=== PATIENT | female | born 1950 | race Two or more races ===

== ENCOUNTER 2023-02-28 02:56 | Outpatient (CLI) | payer MEDICARE | END 2023-02-28 02:57 | disposition critical access hospital (66) | LOC: EMS 02:56 | DX: R10.10 Upper abdominal pain, unspecified (principal); R11.10 Vomiting, unspecified; R19.7 Diarrhea, unspecified; R68.83 Chills (without fever) | CPT/HCPCS: A0425; A0429 ==

== ENCOUNTER 2023-02-28 03:14 | Emergency (ER) | payer MEDICARE, OTHER ==
--- NOTE | 2023-02-28 03:33 | ED Physician Documentation ---
History of Present Illness - Stated complaint Stated Complaint: N/V/D - Chief complaint Chief Complaint: Abd Pain - History obtained from History obtained from: Patient - Additonal information Additional information: 73yF with pmh gerd, htn, thyroid issues, p/w nbnb n/v and nonbloody diarrhea yesterday with burning in midepigastric region, nonradiating. denies fever, urinary sx, back pain. Review of Systems Constitutional: denies: Fever Cardiac: denies: Chest pain / pressure Respiratory: denies: Dyspnea GI: reports: Abdominal Pain, Nausea, Vomiting, Diarrhea. denies: Constipation, Bloody / black stool : denies: Dysuria PD PAST MEDICAL HISTORY - Present Medications Home Medications: Ambulatory Orders Medication Instructions Recorded Confirmed Esomeprazole Magnesium [Nexium] 40 mg PO DAILY 02/28/23 02/28/23 Levothyroxine Sodium [Levo-T] 25 mcg PO DAILY 02/28/23 02/28/23 Lisinopril [Zestril] 2.5 mg PO DAILY 02/28/23 02/28/23 estradioL [Estradiol (Once Weekly)] 02/28/23 - Allergies Allergies/Adverse Reactions: Allergies Allergy/AdvReac Type Severity Reaction Status Date / Time No Known Drug Allergies Allergy Verified 02/28/23 03:30 PD ED PE NORMAL - Vitals Vital signs reviewed: Yes - General General: Alert and oriented X 3, No acute distress, Well developed/nourished - HEENT HEENT: Atraumatic, PERRL, EOMI - Neck Neck: Supple, no meningeal sign - Cardiac Cardiac: RRR - Respiratory Respiratory: No respiratory distress, Clear bilaterally - Abdomen Abdomen: Non tender, Non distended, Other (discomfort to epigastrium on palpation) - Back Back: No CVA TTP - Derm Derm: Normal color, Warm and dry - Extremities Extremities: No deformity - Neuro Neuro: Alert and oriented X 3, No motor deficit, No sensory deficit - Psych Psych: Normal mood, Normal affect Results - Vitals Vitals: Vital Signs - 24 hr 02/28/23 02/28/23 02/28/23 03:18 03:37 03:59 Temperature 36.9 C Heart Rate 74 72 82 Respiratory 14 18 22 Rate Blood Pressure 134/66 H 138/64 H 133/62 H O2 Saturation 98 97 97 02/28/23 05:16 Temperature Heart Rate 64 Respiratory 21 Rate Blood Pressure 115/58 L O2 Saturation 97 Oxygen O2 Source Room air - EKG (time done) 0320 EKG releavant findings:: EKG personally interpreted by author of this note. Relevant findings are: Rate: Rate (enter#) (74) Rhythm: NSR [place]: Normal Intervals: Normal AR QRS: Normal Ischemia: Normal ST segments - Labs Labs: Laboratory Tests 02/28/23 02/28/23 03:34 03:34 WBC 13.3 H RBC 4.48 Hgb 12.3 Hct 37.5 MCV 83.7 MCH 27.5 MCHC 32.8 RDW 13.3 Plt Count 222 MPV 10.3 Neut # (Auto) 11.8 H Lymph # (Auto) 0.7 L [place] # (Auto) 0.7 Eos # (Auto) 0.1 Baso # (Auto) 0.0 Absolute Nucleated RBC 0.00 Nucleated RBC % 0.0 Sodium 136 Potassium 4.0 Chloride 104 Carbon Dioxide 25 Anion Gap 7.0 BUN 18 Creatinine 0.8 Estimated GFR (MDRD) 71 L Glucose 115 H Calcium 8.9 Total Bilirubin 0.8 AST 27 ALT 19 Alkaline Phosphatase 79 Total Protein 6.8 Albumin 3.4 Globulin 3.4 Albumin/Globulin Ratio 1.0 Lipase 43 PD Medical Decision Making - ED course ED course: 73yF p/w burning epigastric pain, n/v/d. she states she has had symptoms like this in the past and attributes it to gerd. CBC, abdominal panel, 1L ivf, 20 pepcid, zofran ordered with relief of symptoms. cbc unremarkable except for some leukocytosis with wbc 13.3. abdominal panel benign. return precautions given. plan to f/u with pcp. Departure - Departure Disposition: 01 Home, Self Care Clinical Impression: Vomiting, Abdominal pain, Diarrhea Condition: Stable Instructions: ED Nausea Vomiting Comments: You were seen in the ED for nausea and vomiting and abdominal pain with improvement in symptoms after getting medicine (zofran and pepcid). Please follow up with your primary care provider and return to the ED for new or worsening symptoms or if you have other concerns.
[2023-02-28 03:37] LABS: BASOPHILS % (AUTO) 0.2 %; EOSINOPHILS # (AUTO) 0.1 10^3/uL (0.0-0.7); EOSINOPHILS % (AUTO) 0.5 %; HCT - HEMATOCRIT 37.5 % (37.0-47.0); HGB - HEMOGLOBIN 12.3 g/dL (12.0-16.0); LYMPHOCYTES # (AUTO) 0.7 10^3/uL (1.5-3.5); LYMPHOCYTES % (AUTO) 5.1 %; MEAN CORPUSCULAR HEMOGLOBIN 27.5 pg (27.0-31.0); MEAN CORPUSCULAR HGB CONC 32.8 g/dL (32.0-36.0); MEAN CORPUSCULAR VOLUME 83.7 fL (81.0-99.0); MEAN PLATELET VOLUME 10.3 fL (7.9-10.8); MONOCYTES # (AUTO) 0.7 10^3/uL (0.0-1.0); MONOCYTES % (AUTO) 5.1 %; NEUTROPHILS # (AUTO) 11.8 10^3/uL (1.5-6.6); NEUTROPHILS % (AUTO) 88.7 %; PLT - PLATELET COUNT 222 10^3/uL (130-450); RED BLOOD COUNT 4.48 10^6/uL (4.20-5.40); RED CELL DISTRIBUTION WIDTH 13.3 % (12.0-15.0); WHITE BLOOD COUNT 13.3 x10^3/uL (4.8-10.8)
[2023-02-28 03:49] LABS: ALBUMIN 3.4 g/dL (3.2-5.5); BILIRUBIN,TOTAL 0.8 mg/dL (0.2-1.0); CALCIUM 8.9 mg/dL (8.5-10.3); CREATININE 0.8 mg/dL (0.4-1.0); TOTAL PROTEIN 6.8 g/dL (6.7-8.2)
[2023-02-28] MEDS ORDERED: ONDANSETRON 4 MG/2 ML VIAL IVP STA (04:22)
[2023-02-28] MEDS ORDERED: SODIUM CHLORIDE 0.9% 1,000 ML IV STA (04:22)
[2023-02-28] MEDS ORDERED: FAMOTIDINE 20 MG/2 ML VIAL IVP STA (04:22)
[2023-02-28 05:18] VITALS: BP 115/58
== END 2023-02-28 05:45 | disposition home or self-care (01) ==
LOC: EDBD → ED 03:14
DX: R11.2 Nausea with vomiting, unspecified (principal); R19.7 Diarrhea, unspecified
CPT/HCPCS: 36415; 80053; 83690; 85025; 93005; 96374; 96375; 99284